=== PATIENT | female | born 1940 | race Caucasian/White ===

== ENCOUNTER 2023-04-17 19:00 | Emergency (ER) | payer OTHER, SELFPAY ==
[2023-04-17 19:05] VITALS: BP 156/83
--- NOTE | 2023-04-17 19:50 | ED.SKININJ ---
HPI-Injury
General
Chief Complaint: Head Injury
Source: patient
Exam Limitations: none
Time Seen by Provider: 04/17/23 19:20
Travel History
Have you had any contact with someone who has COVID-19?: No
Do you have any symptoms of coronavirus? Fever > 100 degrees, chills, cough, shortness of breath, sore throat, loss of taste or smell, muscle aches, or headache?: No
History of Present Illness-Injury
Initial Injury comments:
82-year-old female on [employer] presents after mechanical fall. She misstep backwards and fell backwards onto pavement. She hit the back of her head. She notes a slight headache no loss of conscious. She also notes slight left-sided neck pain.
She has been ambulatory since then. She denies any back arm or leg pain. No other complaints at this time
Past History
Past History
ED Past Medical History: CVA, HTN, Hypercholesterolemia, Hypothyroidism and Psychiatric (Anxiety)
ED Past Surgical History: Cardiac (Loop recorder ( battery no longer working)) and Tonsilectomy
Social History
Tobacco: Non-smoker
Alcohol: None
Drug: None
Personal:
Living: with family
Phy Exam
Physical Exam
Physical Exam:
General: Well-appearing female no acute respiratory distress
HEENT: Normocephalic atraumatic no obvious scalp abrasion hematoma. TMs normal pupils equal round reactive to light
Heart: Regular rate and rhythm no murmurs
Lungs: Clear to auscultation bilaterally no wheezing
Musculoskeletal exam: The spine is nontender to palpation over the lumbar and thoracic areas there is slight paraspinous muscle tenderness over the left side of this cervical spine. Good range of motion all extremities no deformities
Neurologic: Alert and oriented good strength no drift normal speech
Course
Orders/Labs/Results
Orders:
Orders
04/17/23 19:08
CT Head W/o Iv Contrast Urgent
Comment:
Reason For Exam: headstrike on Eliquis
04/17/23 20:30
CT Cervical Spine W/o Iv Contr Urgent
Comment:
Reason For Exam: fall
Vital Signs
Initial and Last Documented VS:
Initial Vital Signs
Temp Pulse Resp BP Pulse Ox
98.1 F 52 16 156/83 98
04/17/23 19:05 04/17/23 19:05 04/17/23 19:05 04/17/23 19:05 04/17/23 19:05
Last Documented Vital Signs
Temp Pulse Resp BP Pulse Ox
97.7 F 70 18 162/77 96
04/17/23 22:43 04/17/23 22:43 04/17/23 22:43 04/17/23 22:43 04/17/23 22:43
MDM/Problems Addressed
Differential Diagnosis Includes:
Mechanical fall on Eliquis. Contusion versus intracranial hemorrhage or cervical fracture
CT of the head and cervical spine pending
*Critical Care Note
Total Time (30-74mins, 75-104mins- exclusive of procedures): Not Applicable
Update Note
Update Note:
CT of the head negative for acute finding. CT cervical spine still pending
ED Attending Note
-
Portions of this chart may have been created with voice recognition software.� Occasional wrong word or��sound alike� substitutions may have occurred due to the inherent limitations of voice recognition software.
Discharge Plan
Departure
Patient Disposition: Home (Routine Discharge)
Date of Disposition: 04/17/23
Time of Disposition: 22:39
Patient with high blood pressure during this ER visit?: Yes
Condition: Fair
Covid-19: Not Applicable
Discharge Problem:
Contusion
Instructions: Contusion (DC)
Prescriptions:
No Action
levothyroxine 112 MCG tablet
112 mcg PO DAILY@07
losartan 50 MG tablet
50 mg PO BID
atorvastatin 40 MG tablet
40 mg PO QPM
omeprazole 40 MG capsule,delayed release(DR/EC)
40 mg PO Q48H
fluoxetine 10 MG capsule
10 mg PO DAILY
Prolia 60 MG/ML syringe
60 mg SC .[id number]
calcium carbonate-vitamin D3 1 EACH tablet
2 ea PO DAILY
clonazepam 1 MG tablet
1 mg PO HSPRN PRN (Reason: anxiety)
clonazepam 1 MG tablet
1 mg PO DAILY
Eliquis 2.5 MG tablet
2.5 mg PO BID Qty: 60 0RF
carvedilol 12.5 mg Tablet
12.5 mg PO BID
cyanocobalamin (vitamin B-12) 1,000 mcg capsule
1,000 mcg PO DAILY Qty: 30 0RF
Referrals:
Kit Cisneros, [Family Provider] -
Activity Restrictions/Additional Instructions:
You came for evaluation of a head injury. There is no evidence of skull fracture or bleeding on the CT scan. Use Tylenol if needed for pain. You may apply ice to the sore spot. Return if worse otherwise
Interventions
Interventions:
*Risk Screen - Suicide Last Done: 04/17/23 20:59
*General Assessment Last Done: 04/17/23 20:58
*Neglect/Abuse Screening Last Done: 04/17/23 20:58
ED- Fall Risk Assessment Last Done: 04/17/23 22:47
*Nursing Disposition Last Done: 04/17/23 22:47
ED- Neurological Assessment Last Done: 04/17/23 19:10
ED-Skin Assessment Last Done: 04/17/23 19:10
Discharge Date and Time
Discharge Date/Time: 04/17/23 22:48
[2023-04-17 22:43] VITALS: BP 162/77
== END 2023-04-17 22:48 | disposition home or self-care (01) ==
LOC: EMR 19:00
PROVIDERS: EMERGENCY PHYSICIAN Student in an Organized Health Care Education/Training Program; FAMILY PHYSICIAN Family Medicine
DX: S00.93XA Contusion of unspecified part of head, initial encounter (principal); R51.9 Headache, unspecified; M54.2 Cervicalgia; W01.0XXA Fall on same level from slipping, tripping and stumbling without subsequent striking against object, initial encounter; I10 Essential (primary) hypertension; F41.9 Anxiety disorder, unspecified; E03.9 Hypothyroidism, unspecified; E78.00 Pure hypercholesterolemia, unspecified; Z86.73 Personal history of transient ischemic attack (TIA), and cerebral infarction without residual deficits; Z79.01 Long term (current) use of anticoagulants
CPT/HCPCS: 99284; 70450; 72125

== ENCOUNTER → 2023-10-22 14:43 | Outpatient (REF) | payer OTHER, SELFPAY | LOC: HWRAD 14:43 | PROVIDERS: ATTENDING PHYSICIAN Internal Medicine; FAMILY PHYSICIAN Family Medicine | DX: N28.1 Cyst of kidney, acquired (principal) | CPT/HCPCS: 76775 ==

== ENCOUNTER → 2024-03-21 11:02 | Outpatient (REF) | payer OTHER, SELFPAY | LOC: MRI 3T 11:02 | PROVIDERS: ATTENDING PHYSICIAN Pain Medicine Interventional Pain Medicine; FAMILY PHYSICIAN Family Medicine | DX: M54.12 Radiculopathy, cervical region (principal); M48.02 Spinal stenosis, cervical region; M50.30 Other cervical disc degeneration, unspecified cervical region | CPT/HCPCS: 72141; 72148 ==

== ENCOUNTER 2024-06-18 14:06 | Emergency (ER) | payer BC, SELFPAY ==
[2024-06-18 14:13] VITALS: BP 183/91
[2024-06-18 16:10] VITALS: BP 155/68
--- NOTE | 2024-06-18 16:19 | ED.GENMED ---
History of Present Illness
General
Chief Complaint: Fall
Source: patient
Exam Limitations: none
Time Seen by Provider: 06/18/24 16:14
History of Present Illness
History of Present Illness:
See MDM
Past History
Past History
ED Past Medical History: CVA, HTN, Hypercholesterolemia, Hypothyroidism and Psychiatric (Anxiety)
ED Past Surgical History: Cardiac (Loop recorder ( battery no longer working)) and Tonsilectomy
Social History
Tobacco: Non-smoker
Alcohol: None
Drug: None
Personal:
Living: with family
Phy Exam
Physical Exam
Physical Exam:
See MDM
Course
Orders/Labs/Results
Orders:
Orders
06/18/24 14:[address] [CT Head W/o Iv Contrast] Urgent
Comment:
Reason For Exam: fall, on Eliquis
Vital Signs
Initial and Last Documented VS:
Initial Vital Signs
Temp Pulse Resp BP Pulse Ox
98.3 F 58 18 183/91 95
06/18/24 14:13 06/18/24 14:13 06/18/24 14:13 06/18/24 14:13 06/18/24 14:13
Last Documented Vital Signs
Temp Pulse Resp BP Pulse Ox
98.3 F 58 18 183/91 95
06/18/24 14:13 06/18/24 14:13 06/18/24 14:13 06/18/24 14:13 06/18/24 14:13
MDM/Problems Addressed
Differential Diagnosis Includes:
HPI and MDM Narrative:
84-year-old female presenting for evaluation of head injury. Patient states her knee gave out and she fell to the floor. She thinks she hit the left side of her head. She is on Eliquis. She denies loss of consciousness or nausea. On exam, she
is well-appearing and nontoxic. Both knees are stable to varus and valgus stress. No hip tenderness noted. CT head was negative for acute pathology. She has no tenderness to palpation of left temporal artery. She denies visual complaints.
Patient states she feels comfortable going home and understands return precautions. Daughter at bedside states that she does have some mobility issues and they are going to work on a walker
Physical exam
General: Well appearing and non-toxic
HEENT: protecting airway. No tenderness to left anabaptism
Neck: appears supple
CV: No evidence of cyanosis
Resp: No accessory muscle use
Abd: Non-distended
Extremities: No deformities. Both knees stable. No effusion
Neuro: alert
Psych: Normal affect
Skin: Intact
Problems Addressed including Acute and Chronic Conditions affecting care:
1. Head injury
Acuity: acute
Prognosis: stable
Details: CT head negative
Differential Diagnosis (but not limited to): Contusion, concussion
Testing considered: ESR and CRP but there is no temporal artery tenderness
Drug therapy (if applicable): OTC meds, please see d/c instruction regarding Rx drugs
Amount and/or Complexity of Data Reviewed
Clinical info obtained from: Patient
External data reviewed: N/A
Labs I independently reviewed (but not limited to): N/A
Radiology: The CT scan was personally and independently reviewed. In addition, official CT report reviewed.
Pulse Ox: not hypoxic
EKG independently reviewed: N/A
Transcription Typist: N/A
Critical Care: N/A
Risk of Complication:
Social Determinants of health: Good social support
Discussed with other providers: N/A
Escalation of Care includes Admit/Obs: After being observed in the Emergency Department, pt stable for discharge.
Occasional wrong word or 'sound a like' substitutions may have occurred due to the inherent limitations of voice recognition software. Read the chart carefully and recognize, using context, where substitutions have occurred.
*Critical Care Note
Total Time (30-74mins, 75-104mins- exclusive of procedures): Not Applicable
ED Attending Note
-
Portions of this chart may have been created with voice recognition software.� Occasional wrong word or��sound alike� substitutions may have occurred due to the inherent limitations of voice recognition software.
Discharge Plan
Departure
Patient Disposition: Home (Routine Discharge)
Date of Disposition: 06/18/24
Time of Disposition: 16:20
Patient with high blood pressure during this ER visit?: Yes
Discharge Problem:
Head injury
Instructions: Head Injury in Adults (DC), BLOOD PRESSURE
Prescriptions:
No Action
levothyroxine 112 MCG tablet
112 mcg PO DAILY@07
losartan 50 MG tablet
50 mg PO BID
atorvastatin 40 MG tablet
40 mg PO QPM
omeprazole 40 MG capsule,delayed release(DR/EC)
40 mg PO Q48H
fluoxetine 10 MG capsule
10 mg PO DAILY
Prolia 60 MG/ML syringe
60 mg SC .[id number]
calcium carbonate-vitamin D3 1 EACH tablet
2 ea PO DAILY
clonazepam 1 MG tablet
1 mg PO HSPRN PRN (Reason: anxiety)
clonazepam 1 MG tablet
1 mg PO DAILY
Eliquis 2.5 MG tablet
2.5 mg PO BID Qty: 60 0RF
carvedilol 12.5 mg Tablet
12.5 mg PO BID
cyanocobalamin (vitamin B-12) 1,000 mcg capsule
1,000 mcg PO DAILY Qty: 30 0RF
Referrals:
Kit Cisneros DO [Family Provider] -
Activity Restrictions/Additional Instructions:
Please return for any worsening symptoms.
You may return at any time if you have further concerns.
Please follow up with your doctor at the first available appointment, preferably this week.
Thank you for choosing [facility].
Interventions
Interventions:
*Risk Screen - Suicide Last Done: 06/18/24 14:13
*General Assessment Last Done: 06/18/24 14:13
*Neglect/Abuse Screening Last Done: 06/18/24 14:13
Discharge Date and Time
Print Language: SLOVENIAN
== END 2024-06-18 16:56 | disposition home or self-care (01) ==
LOC: EMR 14:06
PROVIDERS: EMERGENCY PHYSICIAN Student in an Organized Health Care Education/Training Program; FAMILY PHYSICIAN Family Medicine
DX: S09.90XA Unspecified injury of head, initial encounter (principal); W19.XXXA Unspecified fall, initial encounter; I10 Essential (primary) hypertension; E03.9 Hypothyroidism, unspecified; E78.00 Pure hypercholesterolemia, unspecified; Z79.01 Long term (current) use of anticoagulants; Z86.73 Personal history of transient ischemic attack (TIA), and cerebral infarction without residual deficits
CPT/HCPCS: 99284; 70450

== ENCOUNTER 2024-07-14 12:59 | Outpatient (RCR) | payer OTHER, SELFPAY | END 2024-07-14 23:59 | disposition home or self-care (01) | LOC: RPT 12:59 | PROVIDERS: ATTENDING PHYSICIAN Surgery; FAMILY PHYSICIAN Family Medicine | DX: R15.9 Full incontinence of feces (principal); M62.89 Other specified disorders of muscle; Z73.6 Limitation of activities due to disability | CPT/HCPCS: 97110; 97140; 97163; 97530 ==

== ENCOUNTER 2024-08-11 13:04 | Outpatient (RCR) | payer OTHER, SELFPAY | END 2024-08-11 23:59 | disposition home or self-care (01) | LOC: RPT 13:04 | PROVIDERS: ATTENDING PHYSICIAN Surgery; FAMILY PHYSICIAN Family Medicine | DX: R15.9 Full incontinence of feces (principal); M62.89 Other specified disorders of muscle; Z73.6 Limitation of activities due to disability | CPT/HCPCS: 97110; 97530 ==

== ENCOUNTER 2025-02-05 15:15 | Emergency (ER) | payer OTHER, SELFPAY ==
[2025-02-05 15:16] VITALS: BP 117/72
[2025-02-05 15:35] LABS: Hematocrit 33.2 % (37.0-47.0); Hemoglobin 10.3 g/dL (12.0-16.0); Mean Corp Hgb Conc. 31.0 g/dL (33.0-37.0); Mean Corpuscular Volume 98.2 fL (81.0-99.0); Nucleated Red Blood Cells % 0 %; Platelet Count 126 10^3/uL (130-400); Red Cell Dist. Width 13.3 % (11.5-14.5)
[2025-02-05 15:48] LABS: ALT (SGPT) < 10 U/L (0-35); AST (SGOT) 21 U/L (14-36); Albumin 3.8 g/dl (3.5-5.0); Alkaline Phosphatase 51 U/L (38-126); Blood Urea Nitrogen 47 mg/dl (7-17); Calcium 9.7 mg/dl (8.4-10.2); Carbon Dioxide 29 mmol/L (22-30); Chloride 103 mmol/L (98-107); Glucose 89 mg/dl (70-99); Potassium 4.9 mmol/L (3.5-5.1); Sodium 137 mmol/L (135-145); Total Protein 6.8 g/dl (6.3-8.2); eGFR 49.24
[2025-02-05 17:51] VITALS: BMI 15.5
[2025-02-05 17:53] VITALS: BP 103/66
[2025-02-05 18:00] VITALS: BP 108/65
[2025-02-05 18:08] VITALS: BP 107/60
[2025-02-05 18:09] LABS: Urine Character Clear (Clear)
[2025-02-05 18:18] LABS: Urine Urothelial Cell 0-2 /LPF (FEW)
[2025-02-05 19:00] VITALS: BP 115/70
[2025-02-05 20:00] VITALS: BP 114/71
--- NOTE | 2025-02-05 20:12 | ED.GENMED ---
History of Present Illness
General
Chief Complaint: Weakness
Source: patient and family
Exam Limitations: none
Time Seen by Provider: 02/05/25 17:08
Nursing documentation reviewed up to this point in time: agreed with
History of Present Illness
History of Present Illness:
Note:
CHIEF COMPLAINT(S)
Progressive weakness and confusion.
HISTORY OF PRESENT ILLNESS
The patient is an 84-year-old female with a recent onset of progressive weakness and confusion, noted particularly this morning. The patients condition was notably different from her baseline; she appeared confused, spoke in a low tone, kept her
head down, and had heavy, glassy eyes while attempting to eat breakfast. She was unable to use her walker properly and needed assistance. She resides in an assisted living facility. There were no reported fevers. Past medical history includes heart
issues necessitating a pacemaker; however, there has been concern about the non-pacing side of the heart, and discussions of possibly requiring a dual-chamber pacemaker took place. She was moved to her current assisted living situation in August or
September after these concerns. The patient has a history of hypothyroidism, a pacemaker implant, and lymphedema. Denies chest pain, shortness of breath, urinary symptoms, and recent weight gain or swelling in the legs. She reports feeling better than
earlier in the day but experienced significant morning weakness.
PAST MEDICAL AND SURGICAL HISTORY
Hypothyroidism, pacemaker implant, lymphedema.
CHRONIC MEDICAL CONDITIONS SIGNIFICANTLY AFFECTING CARE
Heart conduction issues necessitating a pacemaker, potentially requiring a dual-chamber pacemaker due to non-pacing side heart concerns.
PHYSICAL EXAM
General: Alert, no acute distress noted upon examination.
Skin: Warm, dry.
Head: Normocephalic, atraumatic.
Neck: Supple, trachea midline.
Eye, Ears, Nose, Mouth, and Throat: Oral mucosa moist. Heavy and glassy eyes noted.
Cardiovascular: Normal peripheral perfusion, No edema.
Respiratory: Respirations are non-labored, noted slight gurgling upon initial examination.
Gastrointestinal: Abdomen nondistended.
Back: Normal range of motion, Normal alignment.
Musculoskeletal: Normal ROM, normal strength.
Neurological: Alert and oriented to person, place, time, and situation, No focal neurological deficit observed.
Psychiatric: Cooperative, appropriate mood & affect.
PROBLEM LIST
Acute Problems:
- Progressive weakness
- Confusion
Chronic Problems:
- Heart conduction issues with pacemaker
PLAN
Run diagnostic tests to evaluate her current heart function and overall condition. Investigate possible issues with the pacemaker and examine the current medications being administered. Consider adjustments to the care plan that address the patients
baseline functioning and recent symptoms.
DIFFERENTIAL DIAGNOSIS
The Differential Diagnosis includes, in no particular order and is not limited to:
- Heart failure exacerbation
- Pacemaker malfunction
- Electrolyte imbalance
- Urinary tract infection
- Hypothyroidism flare
- Medication side effects
- Cardiac arrhythmia
- Stroke or transient ischemic attack
- Sepsis or other infection
- Dehydration
Disposition:
SUMMARY OF ENCOUNTER
The patient, an 84-year-old female, presented to the emergency department with transient weakness that began this morning. She initially required assistance to ambulate; however, she exhibited marked improvement while in the emergency department.
The patients daughter was frustrated but pleased by the improvement, noting that if the patient had appeared as well initially, they would not have sought emergency care. The patient was able to tolerate liquids by mouth during her stay, which was
the only intervention performed.
DISPOSITION
Discharge to assisted living.
PATIENT EDUCATION AND COUNSELING
The patient and her daughter were informed about the transient nature of the weakness. Reassurance was provided regarding the patients current ability to maintain herself and tolerate oral intake.
FOLLOW-UP INSTRUCTIONS
The patient should follow up with her primary care provider to monitor her symptoms and any potential recurrence of weakness.
MEDICAL DECISION MAKING
- Number and Complexity of Problems Addressed: Weakness with no chronic conditions affecting care.
- Risk: Consideration of Admission/Observation: Escalation of care including admission/observation was considered given the complexity and risk of the patients presenting complaint. However, ultimately I feel the patient is safe for outpatient
management with close follow-up. Reasoning: Work-up reassuring, does not reveal any acute life/organ threatening processes, patients symptoms well-controlled upon reevaluation, reexamination is reassuring, vitals are stable, patient agreeable with
discharge, reliable for follow-up.
DIAGNOSIS
Weakness (R53.1)
Past History
Past History
ED Past Medical History: CVA, HTN, Hypercholesterolemia, Hypothyroidism and Psychiatric (Anxiety)
ED Past Surgical History: Cardiac (Loop recorder ( battery no longer working)) and Tonsilectomy
Social History
Tobacco: Non-smoker
Alcohol: None
Drug: None
Personal:
Living: with family
Phy Exam
Physical Exam
Physical Exam:
.
Course
Orders/Labs/Results
Orders:
Orders
02/05/25 15:26
Complete Blood Count/With Diff Urgent
Comprehensive Metabolic Panel Urgent
02/05/25 18:03
Urinalysis Reflex To Culture Urgent
Date Specimen was Collected: 02/05/25
Time Specimen was Collected: 18:01
Urine Microscopic Reflex Cult Urgent
02/05/25 20:09
Electrocardiogram (*1) Urgent
Reason for Study: QTc Monitoring
EKG- Treatment ONCE
Abnormal Lab Results
02/05/25 02/05/25
15:26 18:03
RBC 3.38 L 10^6/uL
(4.20-5.40)
Hgb 10.3 L g/dL
(12.0-16.0)
Hct 33.2 L %
(37.0-47.0)
MCHC 31.0 L g/dL
(33.0-37.0)
Plt Count 126 L 10^3/uL
(130-400)
Abs Immat Gran (auto) 0.1 H 10^3/uL
(0-0.05)
Immature Gran % 1.2 H %
(0-0.5)
Monocytes % 10.6 H %
(1.7-9.3)
BUN 47 H mg/dl
(7-17)
Creatinine 1.1 H mg/dL
(0.6-1.0)
Urine RBC 3-6 A /HPF
(0-2)
Urine Bacteria (Reflex) Few A
(Negative)
Urine Glucose 3+ A
(Negative)
Urine Albumin (Reflex) 2+ A
(Neg - Trace)
02/05/25 15:26
02/05/25 15:26
Vital Signs
Initial and Last Documented VS:
Initial Vital Signs
Temp Pulse Resp BP Pulse Ox
98.2 F 71 16 117/72 96
02/05/25 15:16 02/05/25 15:16 02/05/25 15:16 02/05/25 15:16 02/05/25 15:16
Last Documented Vital Signs
Temp Pulse Resp BP Pulse Ox
98.2 F 68 12 114/71 97
02/05/25 15:16 02/05/25 20:00 02/05/25 18:01 02/05/25 20:00 02/05/25 20:00
*Pulse Oximetry
SaO2: 97
Oxygen Mode of Delivery: Room air
Patient hypoxic: no
*Critical Care Note
Total Time (30-74mins, 75-104mins- exclusive of procedures): Not Applicable
ED Attending Note
-
Portions of this chart may have been created with voice recognition software.� Occasional wrong word or��sound alike� substitutions may have occurred due to the inherent limitations of voice recognition software.
Discharge Plan
Departure
Patient Disposition: Home (Routine Discharge)
Date of Disposition: 02/05/25
Time of Disposition: 20:14
Patient with high blood pressure during this ER visit?: No
Condition: Good
Discharge Problem:
Weakness
Instructions: Generalized Weakness (DC)
Prescriptions:
No Action
levothyroxine 112 MCG tablet
112 mcg PO DAILY@07
losartan 50 MG tablet
50 mg PO BID
atorvastatin 40 MG tablet
40 mg PO QPM
omeprazole 40 MG capsule,delayed release(DR/EC)
40 mg PO Q48H
fluoxetine 10 MG capsule
10 mg PO DAILY
Prolia 60 MG/ML syringe
60 mg SC .[id number]
calcium carbonate-vitamin D3 1 EACH tablet
2 ea PO DAILY
clonazepam 1 MG tablet
1 mg PO HSPRN PRN (Reason: anxiety)
clonazepam 1 MG tablet
1 mg PO DAILY
Eliquis 2.5 MG tablet
2.5 mg PO BID Qty: 60 0RF
carvedilol 12.5 mg Tablet
12.5 mg PO BID
cyanocobalamin (vitamin B-12) 1,000 mcg capsule
1,000 mcg PO DAILY Qty: 30 0RF
Referrals:
Ryan Restrepo MD [Family Provider, Internal Medicine]
Activity Restrictions/Additional Instructions:
Thank You for choosing [facility].
It was a pleasure meeting you and taking part in your care. We hope for your continued healing and wellness.
Please read discharge instructions in their entirety. However, they are for general education and may not describe your exact diagnosis at discharge. Information on your ER visit and medical conditions were discussed with you along with appropriate
follow up information...
If indicated, please take your medications as instructed and indicated on discharge paperwork.
Please schedule a follow up appointment as directed. Call to schedule an appointment
Please return to the emergency department with ANY change in, persisting, or worsening of symptoms. If any of your symptoms do not improve, or persist, or become more severe within 6-12 hours, please return to the emergency department for further
care.
Please return to the emergency department if you develop a headache, neck pain/stiffness, fever greater than 100.4F, chest pain, shortness of breath, persistent nausea, vomiting, slurred speech, difficulty walking, numbness/tingling, weakness, signs
of infection or any other symptoms that are worrisome to you.
If you have any questions or concerns please do not hesitate to call the Hospital at .
Interventions
Interventions:
*Risk Screen - Suicide Last Done: 02/05/25 15:16
*General Assessment Last Done: 02/05/25 15:16
*Neglect/Abuse Screening Last Done: 02/05/25 15:16
*ED- Fall Risk Assessment Last Done: 02/05/25 19:24
*ED COVID-19 Vaccine History Last Done: 02/05/25 19:24
*ED Influenza Vaccine History Last Done: 02/05/25 19:24
ED- Cardiac Assessment Last Done: 02/05/25 17:53
ED- Neurological Assessment Last Done: 02/05/25 17:53
ED- Pulmonary Assessment Last Done: 02/05/25 17:53
Discharge Date and Time
Print Language: ALB[place]IAN
== END 2025-02-05 20:32 | disposition home or self-care (01) ==
LOC: EMR 15:15
PROVIDERS: Emergency Medicine; EMERGENCY PHYSICIAN Student in an Organized Health Care Education/Training Program; FAMILY PHYSICIAN Internal Medicine
DX: R53.1 Weakness (principal); E03.9 Hypothyroidism, unspecified; E78.00 Pure hypercholesterolemia, unspecified; I10 Essential (primary) hypertension; Z86.73 Personal history of transient ischemic attack (TIA), and cerebral infarction without residual deficits
CPT/HCPCS: 99284; 80053; 81003; 81015; 85025; 93005

== ENCOUNTER → 2025-03-20 14:10 | Outpatient (REF) | payer OTHER, SELFPAY | LOC: HWRCS 14:10 | PROVIDERS: ATTENDING PHYSICIAN Internal Medicine Cardiovascular Disease; FAMILY PHYSICIAN Internal Medicine | DX: I48.91 Unspecified atrial fibrillation (principal); I50.9 Heart failure, unspecified | CPT/HCPCS: 93306 ==